=== PATIENT | male | born 1945 | race Caucasian/White ===

== ENCOUNTER 2016-08-19 20:27 | Emergency (ER) | payer OTHER ==
[~2016-08-19] VITALS: Ht 170.2 cm; Wt 85.0 kg
[~2016-08-19 20:27] MED LIST: ASPIR-MOX IB C325 MG PO; CRESTOR5 MG PO; IMDUR60 MG PO; NAPROXEN375 M2 PO; OMEPRAZOLE20 M3 PO; SYNTHROID200 MCG PO; TOPROL XL50 MG PO; TRICOR145 MG PO; ZOLOFT100 M1 PO
[2016-08-19 20:59] LABS: ADD MIUA? YES; BILIRUBIN NEGATIVE; BLOOD NEGATIVE; COLOR YELLOW ((YELLOW)); GLUCOSE (STRIP) NEGATIVE; KETONES NEGATIVE; LEUKOCYTES TRACE; NITRITE NEGATIVE; PROTEIN (STRIP) NEGATIVE; SPECIFIC GRAVITY 1.015 (1.000-1.030); UROBILINOGEN 0.2 MG/DL (0.2-1.0)
[2016-08-19 21:04] LABS: BACTERIA RARE /HPF; EPITHELIAL CELLS NONE SEEN /HPF; MUCUS TRACE /LPF; RED BLOOD CELLS 0-5 /HPF (0-5); UCUL ADDED? NO
[2016-08-19 21:23] LABS: CHLORIDE 100 mEq/L (99-109); HEMATOCRIT 41.7 % (38.0-50.0); MCH 31.5 PG (29.0-34.0); MCHC 34.3 G/DL (30.0-36.0); MCV 91.9 FL (86-99); MEAN PLAT.VOLUME 10.2 uM^3 (9.0-12.4); PLATELET COUNT 210 K/uL (156-360); POTASSIUM 3.7 mEq/L (3.7-5.4); RBC DIS.WIDTH-CV 12.2 % (11.8-14.6); RBC DIS.WIDTH-SD 41.1 % (39-53); RED BLOOD COUNT 4.54 M/uL (4.00-5.50); SODIUM 137 mEq/L (136-147); WHITE BLOOD COUNT 12.8 K/uL (4.1-10.2)
[2016-08-19 21:25] LABS: GLUCOSE 104 mg/dL (70-99)
[2016-08-19 21:27] LABS: ANION GAP 13 MEQ/L (2-14)
[2016-08-19 21:29] LABS: GFR ESTIMATE (CALCULATED) 58 mL/min/
[2016-08-19 21:30] LABS: UREA NITROGEN (BUN) 19 mg/dL (9-23)
[2016-08-19 21:59] LABS: INTER. NORMALIZED RATIO 1.1; PROTHROMBIN TIME 11.4 (9.2-11.2); PTT 30.2 (25-32)
[2016-08-19 22:02] LABS: TROP-I INTERPRETATION NEGATIVE; TROPONIN-I 0.02 ng/mL (0.0-0.30)
[2016-08-20 01:57] LABS: APPEARANCE CLEAR/COLORLESS; RED CELL AREA COUNTED 18; RED CELL COUNT 74 /MM^3 (0-1); RED CELL DILUTION 1; WBC AREA COUNTED 18; WBC DILUTION 1; WHITE CELL COUNT 1 /MM^3 (0-5); WHITE CELL RAW COUNT 2
[2016-08-20 02:25] LABS: CSF EOSINOPHILS 0 % (0-25)
[2016-08-20 02:26] LABS: MONO RAW COUNT 4; MONONUCLEAR WBC'S 80 % (50-90); POLY RAW COUNT 1; POLYNUCLEAR WBC'S 20 % (0-3)
[2016-08-20 05:06] VITALS: BP 105/76
== END 2016-08-20 05:08 | disposition home or self-care (01) ==
LOC: EME 20:27
PROVIDERS: Emergency Medicine
PROC: 009U3ZX Drainage of Spinal Canal, Percutaneous Approach, Diagnostic (ICD-10-PCS; principal; 2016-08-20)
DX: G43.909 Migraine, unspecified, not intractable, without status migrainosus (principal); Z88.1 Allergy status to other antibiotic agents; Z88.8 Allergy status to other drugs, medicaments and biological substances; I10 Essential (primary) hypertension; I25.2 Old myocardial infarction; K21.9 Gastro-esophageal reflux disease without esophagitis; Z95.1 Presence of aortocoronary bypass graft; Z95.5 Presence of coronary angioplasty implant and graft
CPT/HCPCS: 70450; 80048; 81003; 82945; 84157; 84484; 85027; 85610; 85730; 87070; 87205; 89051; 93005; 99281; 99285; J1885

== ENCOUNTER 2017-09-18 12:16 | Day surgery (SDC) | payer OTHER ==
[~2017-09-18] VITALS: Ht 171.4 cm; Wt 81.6 kg
[~2017-09-18 12:16] MED LIST changes: +CRESTOR20 MG PO; -CRESTOR5 MG PO; +DIOVAN HCT 11 TABLET PO; +IMDUR30 MG PO; -IMDUR60 MG PO; +SYNTHROID175 MCG PO; -SYNTHROID200 MCG PO; +ULTRAM50 MG PO; -ZOLOFT100 M1 PO; +ZOLOFT100 MG PO
[2017-09-18] MEDS ORDERED: CRESTOR20 MG PO (13:03)
[2017-09-18] MEDS ORDERED: ASPIR 8181 M1 PO (13:04)
== END 2017-09-18 14:05 | disposition home or self-care (01) ==
LOC: PAIN 12:16 → SDC 12:45 → PAIN 14:05
DX: M47.812 Spondylosis without myelopathy or radiculopathy, cervical region (principal); R51 Headache; M48.02 Spinal stenosis, cervical region; R53.83 Other fatigue; I10 Essential (primary) hypertension; M19.90 Unspecified osteoarthritis, unspecified site; I25.10 Atherosclerotic heart disease of native coronary artery without angina pectoris; Z95.1 Presence of aortocoronary bypass graft; E89.0 Postprocedural hypothyroidism; Z79.82 Long term (current) use of aspirin; Z88.0 Allergy status to penicillin; Z88.8 Allergy status to other drugs, medicaments and biological substances
CPT/HCPCS: J1030; J2250; S0020

== ENCOUNTER 2017-10-02 10:50 | Day surgery (SDC) | payer OTHER ==
[~2017-10-02] VITALS: Ht 171.4 cm; Wt 81.6 kg
[~2017-10-02 10:50] MED LIST changes: +ASPIR 8181 M1 PO
== END 2017-10-02 12:10 | disposition home or self-care (01) ==
LOC: PAIN 10:50 → SDC 11:30 → PAIN 12:10
DX: M47.812 Spondylosis without myelopathy or radiculopathy, cervical region (principal); R51 Headache; M48.02 Spinal stenosis, cervical region; R53.83 Other fatigue; I10 Essential (primary) hypertension; M19.90 Unspecified osteoarthritis, unspecified site; I25.10 Atherosclerotic heart disease of native coronary artery without angina pectoris; Z95.1 Presence of aortocoronary bypass graft; E89.0 Postprocedural hypothyroidism; I65.29 Occlusion and stenosis of unspecified carotid artery; K21.9 Gastro-esophageal reflux disease without esophagitis; Z79.82 Long term (current) use of aspirin; Z88.0 Allergy status to penicillin; Z88.8 Allergy status to other drugs, medicaments and biological substances
CPT/HCPCS: J1030; J2250; S0020

== ENCOUNTER 2017-10-28 08:35 | Emergency (ER) | payer OTHER ==
[~2017-10-28] VITALS: Ht 170.2 cm; Wt 84.1 kg
[2017-10-28 10:25] VITALS: BP 118/79
== END 2017-10-28 10:27 | disposition home or self-care (01) ==
LOC: EME 08:35
DX: R04.0 Epistaxis (principal); I25.2 Old myocardial infarction; I10 Essential (primary) hypertension; E78.5 Hyperlipidemia, unspecified; K21.9 Gastro-esophageal reflux disease without esophagitis; Z95.1 Presence of aortocoronary bypass graft; G43.909 Migraine, unspecified, not intractable, without status migrainosus; Z88.8 Allergy status to other drugs, medicaments and biological substances; E89.0 Postprocedural hypothyroidism; Z85.850 Personal history of malignant neoplasm of thyroid; Z79.82 Long term (current) use of aspirin; F32.9 Major depressive disorder, single episode, unspecified; F41.9 Anxiety disorder, unspecified
CPT/HCPCS: 99281; 99285

== ENCOUNTER 2017-12-11 10:06 | Day surgery (SDC) | payer OTHER ==
[~2017-12-11] VITALS: Ht 170.2 cm; Wt 81.6 kg
[2017-12-11] MEDS ORDERED: TYLENOL EXTRA500 MG PO (10:21)
== END 2017-12-11 11:40 | disposition home or self-care (01) ==
LOC: PAIN 10:06 → SDC 10:30 → PAIN 10:30
DX: M47.812 Spondylosis without myelopathy or radiculopathy, cervical region (principal); M54.2 Cervicalgia; M48.02 Spinal stenosis, cervical region; I10 Essential (primary) hypertension; I65.29 Occlusion and stenosis of unspecified carotid artery; K21.9 Gastro-esophageal reflux disease without esophagitis; E03.9 Hypothyroidism, unspecified; G47.30 Sleep apnea, unspecified; E78.5 Hyperlipidemia, unspecified; I73.9 Peripheral vascular disease, unspecified; I25.2 Old myocardial infarction; Z95.5 Presence of coronary angioplasty implant and graft; Z95.1 Presence of aortocoronary bypass graft; Z79.82 Long term (current) use of aspirin; Z88.0 Allergy status to penicillin
CPT/HCPCS: J1030; J2250; S0020

== ENCOUNTER 2018-01-01 21:48 | Inpatient (IN) | payer OTHER ==
[~2018-01-01] VITALS: Ht 170.2 cm; Wt 86.1 kg
[~2018-01-01 21:48] MED LIST changes: +TYLENOL EXTRA500 MG PO
[2018-01-02 06:07] VITALS: BP 140/90
[2018-01-02 06:35] LABS: ALBUMIN 4.4 g/dL (3.2-4.8)
[2018-01-02 06:36] LABS: CHLORIDE 104 mEq/L (99-109); SODIUM 140 mEq/L (136-147)
[2018-01-02 06:38] LABS: GLUCOSE 102 mg/dL (70-99); TOTAL PROTEIN 7.4 g/dL (6.4-8.3)
[2018-01-02 06:40] LABS: TOTAL BILIRUBIN 0.6 mg/dL (0.0-1.0)
[2018-01-02 06:41] LABS: ALKALINE PHOSPHATASE 47 IU/L (3-129)
[2018-01-02 06:42] LABS: CREATININE 1.5 mg/dL (0.6-1.3); GFR ESTIMATE (CALCULATED) 49 mL/min/ (58.99-99999)
[2018-01-02 06:43] LABS: AST (GOT) 64 IU/L (2-34); UREA NITROGEN (BUN) 18 mg/dL (9-23)
[2018-01-02 06:45] LABS: ALT (GPT) 66 IU/L (3-49)
[2018-01-02 14:54] VITALS: BP 117/82
[2018-01-02 15:54] VITALS: BP 110/77
[2018-01-02 20:07] VITALS: BP 98/55
[2018-01-02 23:08] VITALS: BP 97/64
[2018-01-03 03:22] VITALS: BP 97/55
[2018-01-03 06:52] LABS: HEMATOCRIT 33.1 % (38.0-50.0); MCV 97.9 FL (86-99)
[2018-01-03 08:05] VITALS: BP 106/80
[2018-01-03] MEDS ORDERED: OXYCODONE HCL5 MG PO (08:58)
== END 2018-01-03 12:42 | disposition home or self-care (01) | DRG 483 ==
LOC: ENRESERV 21:48 → 2SOUTH 01-02 05:38 → 3EAST 01-02 05:38 → 2SOUTH 01-02 09:43 → ENRESERV 01-02 11:43 → 2SOUTH 01-02 12:46 → 3EAST 01-02 14:39 → 2SOUTH 01-02 15:19 → 3EAST 01-03 12:42
PROVIDERS: Orthopaedic Surgery
PROC: 0RRK00Z Replacement of Left Shoulder Joint with Reverse Ball and Socket Synthetic Substitute, Open Approach (ICD-10-PCS; principal; 2018-01-02)
DX: M19.012 Primary osteoarthritis, left shoulder (principal); E78.00 Pure hypercholesterolemia, unspecified; E89.0 Postprocedural hypothyroidism; G47.30 Sleep apnea, unspecified; I10 Essential (primary) hypertension; I25.10 Atherosclerotic heart disease of native coronary artery without angina pectoris; K21.9 Gastro-esophageal reflux disease without esophagitis; Z85.850 Personal history of malignant neoplasm of thyroid; Z91.81 History of falling; Z95.5 Presence of coronary angioplasty implant and graft; Z79.82 Long term (current) use of aspirin; Z88.0 Allergy status to penicillin
CPT/HCPCS: 80053; 85014; 85018; C1713; J0131; J0330; J0690; J1100; J1170; J2250; J2405; J2710; J2795; J3010; J7030; J7050; J7643; Q0175